=== PATIENT | male | born 1965 | race Caucasian/White ===

== ENCOUNTER 2021-01-13 10:03 | Outpatient (REF) | payer OTHER, SELFPAY ==
--- NOTE | ~2021-01-13 | XR_ITS ---
EXAMINATION: 1. Radiographs right elbow 2. Radiographs right wrist CLINICAL INFORMATION: Right elbow and wrist pain. COMPARISON: None TECHNIQUE: 3 views of the right elbow and 4 views of the right wrist were obtained. FINDINGS: Right elbow: Dislocated right elbow. There are adjacent osseous fragments most consistent with fractures of the radial head and olecranon process. The joint effusion is present. There is diffuse soft tissue swelling. Right wrist: Visualized portions of the distal radius and ulna demonstrate no fracture. Carpal rows are maintained. No carpal bone fracture. Visualized metacarpals demonstrate no fracture. No focal soft tissue swelling of the wrist. XR/XR elbow RT min 3V IMPRESSION: 1. Fracture/dislocation of the right elbow. 2. Unremarkable radiographs of the right wrist.
--- NOTE | ~2021-01-13 | XR_ITS ---
EXAMINATION: 1. Radiographs right elbow 2. Radiographs right wrist CLINICAL INFORMATION: Right elbow and wrist pain. COMPARISON: None TECHNIQUE: 3 views of the right elbow and 4 views of the right wrist were obtained. FINDINGS: Right elbow: Dislocated right elbow. There are adjacent osseous fragments most consistent with fractures of the radial head and olecranon process. The joint effusion is present. There is diffuse soft tissue swelling. Right wrist: Visualized portions of the distal radius and ulna demonstrate no fracture. Carpal rows are maintained. No carpal bone fracture. Visualized metacarpals demonstrate no fracture. No focal soft tissue swelling of the wrist. XR/XR wrist RT w scaphoid IMPRESSION: 1. Fracture/dislocation of the right elbow. 2. Unremarkable radiographs of the right wrist.
--- NOTE | ~2021-01-13 | CT_ITS ---
EXAMINATION: CT ELBOW WITHOUT CONTRAST, RIGHT CLINICAL INFORMATION: Unspecified fracture of lower end of unspecified extremity. Radiographs from earlier the same day demonstrate a fracture dislocation of the right elbow. COMPARISON: XR right elbow 01/13/2021. TECHNIQUE: Helical scanning was performed with submillimeter collimation in the axial plane with multiplanar 2-D reconstructions. This CT examination was performed using dose optimization techniques as appropriate, variously including the following: *Automated exposure control *Adjustment of mA and/or kV according to patient size (this includes techniques or standardized protocols for targeted exams where dose is matched to indication/reason for exam; i.e. extremities or head) *Use of iterative reconstruction technique DLP: 142 mGy-cm FINDINGS: The images are somewhat suboptimal, likely due to the need to scan the right elbow at the patient's side. There is a significant amount of quantum mottle artifact. There is a posterior dislocation of the radius and ulna relative to the distal humerus. The coronoid process of the humerus abuts the posterior aspect of the trochlea. The coronoid process is blunted and there is a small irregular fragment anterior and distal to the trochlea which is likely a displaced fracture of the coronoid process. The radial head is dorsal to the capitellum. There is a defect in the volar aspect of the radial head consistent with an intra-articular fracture. The radial head fragment appears to be displaced in a distal and ulnar direction and is situated volar to the proximal ulnar diametaphyseal junction. This fragment measures approximately 9 x 19 x 7 mm. There appears to be an additional tiny fracture fragment radial to the dislocated olecranon process, the donor site uncertain. CT/CT elbow RT wo con IMPRESSION: Complex fracture dislocation of the right elbow as described above.
== END 2021-01-13 10:04 | disposition home or self-care (01) ==
LOC: HO.HMGCX 10:03
PROVIDERS: Visit Provider Physician Assistant
DX: M25.531 Pain in right wrist (principal); M25.521 Pain in right elbow; S42.401A Unspecified fracture of lower end of right humerus, initial encounter for closed fracture
CPT/HCPCS: 73080; 73110; 73200

== ENCOUNTER 2021-01-15 12:13 | Day surgery (SDC) | payer OTHER, SELFPAY ==
[2021-01-15] VITALS (20 sets, daily range): BP systolic 153–191; BP diastolic 92–121; PULSE 100–128; RESP 15–18; TEMP 36.3–37.1; O2SAT 94–99; BMI 31.5; BMI 31.6
--- NOTE | ~2021-01-15 | FL_ITS ---
EXAMINATION: XR FLUOROSCOPY WITH IMAGES CLINICAL INFORMATION: History of fracture or dislocation right elbow. COMPARISON: Radiographs of the elbow from 01/13/2021. TECHNIQUE: Fluoroscopy performed by Dr. Pendleton. Fluoroscopy time: 0.3 minutes DAP: 0.0171 mGycm2 Images: 1 lateral fluoro image of the elbow is saved FL/FL guidance in OR FINDINGS AND IMPRESSION: Fluoroscopic imaging guidance required during reduction of elbow dislocation. Interval improved alignment compared to 01/13/2021. A bone fragment of the anterior elbow appears to correspond to the displaced coronoid process fragment. The radial head fragment is not well seen on this image.
--- NOTE | 2021-01-15 14:04 | P.CONAN_ITS ---
HPI Consult details Surgical Data: Procedures Operation Date: 01/15/21 13:50 Proposed Procedures p Elbow FX ORIF,closed vs open(Right) - James Pendleton MD Meds Allergy/AdvReac Type Severity Reaction Status Date / Time No Known Allergies Allergy Verified 01/13/21 09:40 Medication Instructions Recorded Confirmed Last Taken Type ibuprofen 200 mg tablet 400 mg PO Q8H PRN 01/13/21 01/13/21 Unknown History Diagnostics COVID Results: No Data to Display Electrocardiogram: No Data to Display Echocardiogram: No Data to Display [facility] Past Medical History Medical History: (Updated 01/15/21 @ 13:09 by Nicole Judd RN) HTN (hypertension) Surgical History Surgical History (Updated 01/15/21 @ 13:09 by Nicole Judd RN) History of surgery on arm Anesthesia History: Neg: Malignant Hyperthermia Social History Patient Tobacco Use Status: Never used Tobacco Use of substances other than those prescribed or required for medical reasons: No Exam Vital Signs: Last Vital Signs Temp 97.3 F 01/15/21 13:04 Pulse 120 H 01/15/21 13:04 Resp 18 01/15/21 13:04 BP 178/104 H 01/15/21 13:04 Pulse Ox 97 01/15/21 13:04 Airway Mallampati Class: III Mouth Opening: WNL Thyromental Distance: WNL Neck Mobility: WNL Dentition: No issues Other Heart: RRR Lungs: CTA Assessment & Plan Final Anesthetic Review NPO: Yes ASA Classification: ASA 2 Anesthetic Plan Anesthetic Plan: GA
--- NOTE | 2021-01-15 14:15 | MHC.SHP ---
Pre-Procedural Eval Section A Date of Service: 01/15/21 The patient is an INPATIENT: No Changes since office visit: Yes Patient answered all questions; No Cold of Flu in the past 2 weeks, No New Medical Problems and No Changes in Medication The History & Physical has been completed within 30 days and I have reviewed it.: Yes Section B Chief Complaint: fx of lower end humerus Allergies: Allergies Allergy/AdvReac Type Severity Reaction Status Date / Time No Known Allergies Allergy Verified 01/13/21 09:40 Plan I have reviewed the history and physical and performed a pertinent physical examination on my patient. No changes have occurred unless specified.
--- NOTE | 2021-01-15 14:27 | P.CONAN_ITS ---
[facility] Active Problems Active Problems: All Active Problems (Updated 01/15/21 @ 13:09 by Nicole dos santos RN) Fracture dislocation of elbow joint (Acute) Past Medical History Medical History (Updated 01/15/21 @ 13:09 by Nicole Judd RN) HTN (hypertension) Surgical History Surgical History (Updated 01/15/21 @ 13:09 by Nicole Judd RN) History of surgery on arm History of Problems with Anesthesia: No Social History Social History Patient Tobacco Use Status: Never used Tobacco Use of substances other than those prescribed or required for medical reasons: No Are you DNR?: No Advance Directives: No Advance Directives Information Provided: Yes Current occupational status: employed Current occupation: [employer] [place] employee Gender identity: Male Meds Allergies Allergy/AdvReac Type Severity Reaction Status Date / Time No Known Allergies Allergy Verified 01/13/21 09:40 Home Medications Medication Instructions Recorded Confirmed Last Taken Type ibuprofen 200 mg tablet 400 mg PO Q8H PRN 01/13/21 01/13/21 Unknown History Exam Exam Date and Time: January 15, 2021 1427 Height,Weight and Vital Signs: Height 5 ft 10 in Weight 99.79 kg Last Vital Signs Temp 97.3 F 01/15/21 13:04 Pulse 120 H 01/15/21 13:04 Resp 18 01/15/21 13:04 BP 178/104 H 01/15/21 13:04 Pulse Ox 97 01/15/21 13:04 Airway Mallampati Class: II TM Dist: >3cm Neck ROM: Full Loose/Missing/Broken Teeth: No Heart: RRR Lungs: CTA Assessment and Plan Assessment Anesthesia Assessment: Anesthesia Plan Discussed and Chart Reviewed Final Anesthetic Review History of Problems with Anesthesia: No NPO: Yes ASA Class: II Final Preanesthetic Review: Meds/Allgs Chart Reviewed, Consent Obtained/Reviewed and Anes Risks/Benef Reviewed Patient Risk: Low Procedure Risk: Low Anesthetic Plan Anesthetic Plan: GA Disposition: Standard PACU
[2021-01-15] MEDS: oxyCODONE HCl Immed Release 5 MG TABLET 10 MG PO (16:11)
[2021-01-15] MEDS: Acetaminophen 325 MG TABLET 975 MG PO (16:14)
[2021-01-15] MEDS: HYDROmorphone HCl 0.5 MG/0.5 ML SYRINGE IVPUSH (16:43)
[2021-01-15] MEDS: hydrALAZINE HCl 20 MG/ML VIAL 10 MG IVPUSH (17:47)
--- NOTE | 2021-01-15 18:12 | PC.NURSE ---
dr. godfrey calling hospitalist to do m.d. to m.d. report.
--- NOTE | 2021-01-15 18:35 | PM.IMHP ---
History of Present Illness Date of Service: 01/15/21 Chief Complaint: Uncontrolled HTN 56 year male with who recently fell and injured right arm and only went to an urgent care 3 days ago and noted to have right lower end humerus fracture and was operated on today. At the urgent care visit he was noted to have high BP and was prescribed Norvasc 5 mg which he has been taking daily, including today. Prior to surgery today he was noted to have very high BP and was given med intra and post operatively. And following surgery BP was still high at one point 191/120 and given meds including Hydralazine and Labetalol, most recent BP is now 157/112. No headache, no sob or chest pain. Pain is reasonably well controlled. Review of Systems Review of Systems: Gen: no fever Resp: no sob, no cough CV: no chest, no BRADSHAW, no leg edema GI: No n/v, no abd pain Neuro: No confusion Yes all other systems are reviewed and are negative [facility] Medical History (Updated 01/15/21 @ 18:46 by Ceferino Urena MD) HTN (hypertension) Surgical History History of surgery on arm Social History Patient Tobacco Use Status: Never used Tobacco Use of substances other than those prescribed or required for medical reasons: No Are you DNR?: No Advance Directives: No Advance Directives Information Provided: Yes Current occupational status: employed Current occupation: [employer] [place] Gender identity: Male Meds Allergies Allergy/AdvReac Type Severity Reaction Status Date / Time No Known Allergies Allergy Verified 01/13/21 09:40 Active Medications: Current Medications Acetaminophen (Acetaminophen 325 Mg Tablet) 1,000 mg PO ONCE PRN PRN Reason: Pain, Mild (Pain Scale 1-3) Acetaminophen (Acetaminophen 325 Mg Tablet) 650 mg PO Q6H PRN PRN Reason: Pain, Mild (Pain Scale 1-3) Albuterol Sulfate (Albuterol Sulfate (0.083%) 2.5 Mg/3 Ml Vial.Neb) 2.5 mg INHALE ONCE PRN PRN Reason: Wheezing Fentanyl (Fentanyl Citrate/Pf 100 Mcg/2 Ml Vial) 50 mcg IVPUSH Q5M PRN; Protocol PRN Reason: Pain, Severe (Pain Scale 7-10) Fentanyl (Fentanyl Citrate/Pf 100 Mcg/2 Ml Vial) 25 mcg IVPUSH Q5M PRN; Protocol PRN Reason: Pain, Moderate (Pain Scale 4-6 Hydromorphone HCl (Hydromorphone Hcl 0.5 Mg/0.5 Ml Syringe) 0.5 mg IVPUSH Q5M PRN; Protocol PRN Reason: Pain, Severe (Pain Scale 7-10) Last Admin: 01/15/21 16:43 Dose: 0.5 mg Documented by: Hydromorphone HCl (Hydromorphone Hcl 0.5 Mg/0.5 Ml Syringe) 0.25 mg IVPUSH Q5M PRN; Protocol PRN Reason: Pain, Severe (Pain Scale 7-10) Melatonin (Melatonin 3 Mg Tablet) 6 mg PO BEDTIME PRN PRN Reason: Insomnia Ondansetron HCl (Ondansetron Hcl 4 Mg/2 Ml Vial) 4 mg IVPUSH ONCE PRN PRN Reason: Nausea and Vomiting Oxycodone HCl (Oxycodone Hcl Immed Release 5 Mg Tablet) 5 mg PO ONCE PRN PRN Reason: Pain, Severe (Pain Scale 7-10) Oxycodone HCl (Oxycodone Hcl Immed Release 5 Mg Tablet) 5 mg PO Q6H PRN PRN Reason: Pain, Moderate (Pain Scale 4-6 Sodium Chloride (0.9 % Sodium Chloride Flush 3 Ml Syringe) [facility] Medications Medication Instructions Recorded Confirmed Last Taken Type ibuprofen 200 mg tablet 400 mg PO Q8H PRN 01/13/21 01/13/21 Unknown History Physical Exam Vital Signs and Narrative: Vital Signs: Last Vital Signs Temp 97.7 F 01/15/21 15:33 Pulse 104 H 01/15/21 18:13 Resp 18 01/15/21 18:13 BP 157/112 H 01/15/21 18:13 Pulse Ox 95 01/15/21 18:13 Body Mass Index 31.5 Const: Other: Constitutional: Alert, in no distress, overweight. Mental Status: Oriented to person, place and time. Eyes: Pupils are equal, round and reactive to light. Ear, Nose and Throat: Oropharynx clear, mucous membranes moist. Ears and nose without eformities. . Respiratory: Clear to auscultation. No wheezing, rales or rhonchi. Cardiovascular: S1 S2 regular. No murmurs, rubs or gallops. Gastrointestinal: Abdomen soft, non-tender, non-distended. Normal bowel sounds.? Neurologic: Cranial nerves II-XII grossly intact. No focal neurological deficits. Moves all extremities spontaneously.? Skin: No rashes or lesions.?has right arm splint Musculoskeletal: No cyanosis or clubbing. Psychiatric: Normal mood and affect? Results Imaging Radiologist's Impressions: Impressions Guidance Fluoroscopy 01/15/21 13:57 FINDINGS AND IMPRESSION: Fluoroscopic imaging guidance required during reduction of elbow dislocation. Interval improved alignment compared to 01/13/2021. A bone fragment of the anterior elbow appears to correspond to the displaced coronoid process fragment. The radial head fragment is not well seen on this image. Assessment and Plan (1) HTN (hypertension): Status: Acute (2) Fracture dislocation of elbow joint: Status: Acute 56 year male recently diagnosed HTN and s/p righg humrus fracture repair and post uncontrolled HTN plan: Monitor overnight, continue home dose of Norvasc 5, add diuretics, avoid dropping BP too much too quickly, IV hydralazine or labetalol for extremely high BP ie SBP >180 or DBP> 110 pain management with oxycodone and post op management by surgery. If remains in hospital beyond tomorrow then consider chemical DVT prophylaxis Quality Stroke Does the patient have a stroke diagnosis?: No VTE Prior VTE?: No VTE Risk Level:: Medical - moderate - high VTE Device Contraindication: Treatment Not Indicated VTE Drug Contraindication: Treatment Not Indicated
--- NOTE | 2021-01-15 20:16 | PM.EVENT ---
Event Note Date of Service: 01/15/21 Event Note: Patient is s/p Right elbow Open reduction while in PACU his BP remained uncontrolled; therefore, admission was requested. Hospitalist was consulted for management on uncontrolled HTN Right elbow : Keep splint clean, dry, and intact Elevate throughout the day No heavy lifting Perform fist/finger exercises throughout the day Discharge pending medical clearance.
[2021-01-15] MEDS: 0.9 % Sodium Chloride Flush 3 ML SYRINGE IVFLUSH (20:28)
[2021-01-15] MEDS: oxyCODONE HCl Immed Release 5 MG TABLET PO (20:28)
[2021-01-16 04:00] VITALS: BP 156/72; PULSE 102; RESP 22; TEMP 36.4; O2SAT 98
--- NOTE | 2021-01-16 07:42 | HO.POSTANES ---
Post Anesthesia Evaluation Post Anesthesia Evaluation Vital Signs: Vital Signs Temp Pulse Resp BP Pulse Ox 01/16/21 04:00 97.5 F 102 H 22 H 156/72 H 98 01/15/21 23:36 98.8 F 116 H 15 178/100 H 94 Anesthesia: General LMA Mental Status: Awake Pain Control: Satisfactory Nausea/Vomiting: None Hydration: Adequate Anesthesia-Related Issues: No Anes. Related Issues
--- NOTE | 2021-01-16 08:47 | PC.NURSE ---
Patient refused to have AM labs drawn and refused to have AM vital signs done. Dr. Urena made aware. Patient verbalized wanting to leave. Dr. Urena stated it was fine for patient to leave AMA. PAtient was educated on risks of leaving AMA and patient verbalized understanding. IV was removed. AMA paperwork was signed.
--- NOTE | 2021-01-16 08:53 | PM.PNORT ---
Subjective Subjective Date of Service: 01/16/21 Interval history: POD1 s/p right elbow open reduction. Patient is resting comfortably in bed. Medicine managing BP. Denies any SOB, CP, palpitations, dissniness. Physical Exam Vital Signs: Vital Signs: Last Vital Signs Temp 97.5 F 01/16/21 04:00 Pulse 102 H 01/16/21 04:00 Resp 22 H 01/16/21 04:00 BP 156/72 H 01/16/21 04:00 Pulse Ox 98 01/16/21 04:00 Body Mass Index 31.6 Const: General: cooperative, healthy appearing and no acute distress Resp: Effort & Inspection: normal respiratory effort and able to speak in complete sentences Cardio: Rate: regular rate Peripheral pulses: Peripheral pulses 2+ throughout GI: Palpation (GI): Soft to palpation Skin: Lesions: no lesions Rashes: no rashes Extrem: Other: Right elbow splint is clean, dry, and intact. Patient is able to move all digits. Sensation intact. Procedures Date of Service Date of Service: 01/16/21 Progress Note: A&P Assessment and plan (1) Fracture dislocation of elbow joint: Status: Acute Assessment and Plan: Continue pain mgmnt'Keep splint clean, dry and intact Sling at all times. Dispo planning-Pending- Medicine to manage BP Fall Risk Details Current Medications: Current Medications Acetaminophen (Acetaminophen 325 Mg Tablet) 1,000 mg PO ONCE PRN PRN Reason: Pain, Mild (Pain Scale 1-3) Acetaminophen (Acetaminophen 325 Mg Tablet) 650 mg PO Q6H PRN PRN Reason: Pain, Mild (Pain Scale 1-3) Albuterol Sulfate (Albuterol Sulfate (0.083%) 2.5 Mg/3 Ml Vial.Neb) 2.5 mg INHALE ONCE PRN PRN Reason: Wheezing Fentanyl (Fentanyl Citrate/Pf 100 Mcg/2 Ml Vial) 50 mcg IVPUSH Q5M PRN; Protocol PRN Reason: Pain, Severe (Pain Scale 7-10) Fentanyl (Fentanyl Citrate/Pf 100 Mcg/2 Ml Vial) 25 mcg IVPUSH Q5M PRN; Protocol PRN Reason: Pain, Moderate (Pain Scale 4-6 Hydrochlorothiazide (Hydrochlorothiazide 12.5 Mg Tablet) 12.5 mg PO DAILY [facility]; Protocol Last Admin: 01/16/21 08:47 Dose: Not Given Documented by: Hydromorphone HCl (Hydromorphone Hcl 0.5 Mg/0.5 Ml Syringe) 0.5 mg IVPUSH Q5M PRN; Protocol PRN Reason: Pain, Severe (Pain Scale 7-10) Last Admin: 01/15/21 16:43 Dose: 0.5 mg Documented by: Hydromorphone HCl (Hydromorphone Hcl 0.5 Mg/0.5 Ml Syringe) 0.25 mg IVPUSH Q5M PRN; Protocol PRN Reason: Pain, Severe (Pain Scale 7-10) Melatonin (Melatonin 3 Mg Tablet) 6 mg PO BEDTIME PRN PRN Reason: Insomnia Ondansetron HCl (Ondansetron Hcl 4 Mg/2 Ml Vial) 4 mg IVPUSH ONCE PRN PRN Reason: Nausea and Vomiting Oxycodone HCl (Oxycodone Hcl Immed Release 5 Mg Tablet) 5 mg PO ONCE PRN PRN Reason: Pain, Severe (Pain Scale 7-10) Oxycodone HCl (Oxycodone Hcl Immed Release 5 Mg Tablet) 5 mg PO Q6H PRN PRN Reason: Pain, Moderate (Pain Scale 4-6 Last Admin: 01/15/21 20:28 Dose: 5 mg Documented by: Sodium Chloride (0.9 % Sodium Chloride Flush 3 Ml Syringe) 3 [facility] Last Admin: 01/16/21 08:47 Dose: Not Given Documented by: Time Spent With Patient Time: Total time spent is greater than 50% in coordination of care (as documented) at patient's floor/unit and/or counseling patient: Time with patient: less than 15 minutes Quality Stroke Does the patient have a stroke diagnosis?: No VTE Prior VTE?: No VTE Risk Level:: Medical - moderate - high VTE Device Contraindication: Treatment Not Indicated VTE Drug Contraindication: Treatment Not Indicated
--- NOTE | 2021-01-16 09:09 | MHC.CM.PN ---
Addendum entered by Bernie Ayoub 01/16/21 09:18: PATIENT IS LEAVING AMA HE PLANS TO SECURE [facility] [place] [facility] [place] [facility]ALTHCARE PROVIDER. Original Note: PATIENT LIVES WITH HIS SPOUSE. HE IS INDEPENDENT WITH ALL ADLS. NO DME OR VNA SERVICES IN THE HOME. HE IS AWARE THAT HE IS DISCHARGED HOME TODAY - SELF CARE. SPOUSE IS PROVIDING TRANSPORT. RN AWARE OF PLAN. M.O.O.N. 01/16 IN CHART
--- NOTE | 2021-01-16 09:28 | P.DS_ITS ---
DS: Providers Provider Date of Service: 01/16/21 Date of admission: 01/15/21 18:16 Primary care physician: None Physician Consults: 01/15/21 17:20 Consult to Medicine Stat Consulting Provider: Hospitalist Reason for consultation: Incontrolled htn Has provider been notified: No DS: Diagnosis Discharge Diagnosis (1) Fracture dislocation of elbow joint: Status: Acute DS: Summary Hospital Course Hospital Course: Patient was monitored overnight blood pressure improved, last check 157/72 at 4 am. He refused further BP check, he refused labs to assess BMP, he refused additional med and attribute everything to his anxiety and prefer defering everything to his pcp, he understands that risks include [place], stroke and even if BP is not adequately, he was of sound mind and assumed full responsibility, RN present during conversation. Time Spent with Patient Time attestation: Total time spent providing and/or coordinating discharge services: Discharge coordination time: Greater than 30 minutes Quality: Stroke Does the patient have a stroke diagnosis?: No Physical Exam Vital Signs: Vital Signs: Last Vital Signs Temp 97.5 F 01/16/21 04:00 Pulse 102 H 01/16/21 04:00 Resp 22 H 01/16/21 04:00 BP 156/72 H 01/16/21 04:00 Pulse Ox 98 01/16/21 04:00 Body Mass Index 31.6 General: AO X 3, no acute distress Resp: CTA bilateral CVS: S1,S2,RRR GI: +BS, NT, no distention Skin: No rash MSK: right arm splint Neuro: motor grossly intact Psych: appropriate affect Discharge Plan Discharge Anticipated Discharge Date/Time: 01/16/21 09:23 Patient Disposition: Left Against Medical Advice Referrals: Physician,None [Primary Care Provider] - 1 Week Discharge Medications: New oxycodone-acetaminophen [Percocet] 5-325 mg tablet 1 tab PO Q6H PRN (Reason: pain (scale score 4-6)) Qty: 28 RF: 0 Continued ibuprofen 200 mg tablet 400 mg PO Q8H PRN (Reason: pain) RF: 0 amlodipine 5 mg tablet 5 mg PO DAILY Qty: 30 RF: 0 Discharge Orders: Discharge Order (Routine); Ordered 01/15/21 Ordered By: Madison Kam Diet: regular diet Activity on Discharge: Use cane or walker Stand Alone Forms: Patient Portal Discharge page Activity Restrictions/Additional Instructions: Keep splint clean, dry, and intact Elevate throughout the day No heavy lifting Perform fist/finger exercises throughout the day Do not bathe or shower--keep splint dry Take Percocet 5/325mg tabs 1 tab by mouth every 6 hours as needed Call [facility] orthopedics with any questions or concerns you will be contacted by Orthopedics to book your upcoming surgery for next week Care Plan Goals: Blood pressure control Health Concerns: uncontrolled Plan of Treatment: continue taking your blood pressure medication, geet a blood pressure machine and check at home or check at local pharmacy or grocery store, go see your Doctor within a week and have medication adjusted. You understand that you decline to have lab check, blood pressure check this morning for medication adjustment and is responsible for healh issues ralted to your high blood press ure included but not limitted to high heart attack, stroke, and even Assessment: as above
--- NOTE | 2021-01-21 11:45 | PM.OP ---
Brief Operative Note Date of Service: 01/15/21 Pre-op diagnosis: fracture dislocation right elbow Post-op diagnosis: same Procedure: open reduction, removal of loose bodies with lateral ulnar collateral ligament repair Surgeon: James Pendleton MD Anesthesia: GETA Was an Director Of Retail Merchandising used for this Procedure?: Yes Director Of Retail Merchandising: Madison Kam Estimated blood loss (mL): 100 Tourniquet time (min): 45 Pathology: none sent Condition: stable Disposition: PACU
--- NOTE | 2021-01-21 11:52 | W.PM.OPN ---
Operative Note Operative Note Date of Service: 01/15/21 Narrative: Pre-op diagnosis: fracture dislocation right elbow Post-op diagnosis: same Procedure: open reduction, removal of loose bodies with lateral ulnar collateral ligament repair Surgeon: James Pendleton MD Anesthesia: RAFATA Was an Stained Glass Glazier Helper used for this Procedure?: Yes Stained Glass Glazier Helper: Madison Kam Estimated blood loss (mL): 100 Tourniquet time (min): 45 Pathology: none sent Condition: stable Disposition: PACU Indications: This is a 56-year-old gentleman who sustained a traumatic right elbow fracture dislocation and failed to present to the emergency department for 2 weeks. When he did we obtained a CT scan consented him to go to [facility] for closed versus open reduction. Procedure in detail: Patient brought the upper and placed supine with a hand table and prepped and draped in standard sterile fashion. Time-out was called to identify proper site, proper procedure and proper surgeon and IV antibiotics per weight were administered. I began by trying to close reduce this fracture. This was clearly am not going to be possible. Therefore a standard [place] incision was made over the posterolateral elbow. Dissection was taken down through the anconeus and the the radiocapitellar joint capsule. The lateral ulnar collateral ligamentous complex had avulsed off the humerus and the elbow was posteriorly dislocated. I was able to irrigate and remove necrotic debris and several large bony pieces of the radial head consisting of approximately 50% of the radial head. I was able to maintain the elbow in a reduced position and flexion and pronation but extension supination it easily dislocated. There was a type 1 coronoid fracture and no other bony abnormalities appreciated in the joint. Once I had irrigated copiously removed all excess bony debris I flexed and pronated the elbow and then used 1 4.75 Paz and Nephew Helacoil suture anchor in the lateral distal humerus and used this to repair the lateral ulnar collateral ligamentous complex. Once this was complete I was able to flex the elbow to approximately 70 degrees but the radial head deficiency was contributing to persistent instability. Therefore I splinted in approximately 120 degrees of flexion and pronation after I had it irrigated copiously and closed the remaining incision with absorbable sutures and boone. Patient was placed in sterile dressing prior to splinting. Once he was splinted he was extubated and brought to recovery room in a stable condition there were no known complications
== END 2021-01-17 10:45 | disposition home or self-care (01) ==
LOC: HO.SSS 15:26 → HO.S3 17:52 → HO.SSS 18:31 → HO.S3 01-16 09:19
PROVIDERS: Visit Provider Orthopaedic Surgery
PROC: (CPT 24586; principal; 2021-01-15 13:50)
DX: S42.401A Unspecified fracture of lower end of right humerus, initial encounter for closed fracture (principal); I10 Essential (primary) hypertension; W18.30XA Fall on same level, unspecified, initial encounter; Y93.9 Activity, unspecified; Y92.9 Unspecified place or not applicable; Y99.8 Other external cause status; Z87.891 Personal history of nicotine dependence
CPT/HCPCS: 24586; C1713; J0690; J1100; J1170; J2250; J2405; J3010

== ENCOUNTER 2021-01-21 09:53 | Day surgery (SDC) | payer OTHER, SELFPAY ==
--- NOTE | 2021-01-20 09:58 | HO.ANESPROP2 ---
Documented by User: Jolie Isaac NP 01/20/21 10:05 HPI - Anesthesia Eval Consult details Narrative: 56yo M for Right Elbow Arthroplasty,radial head with ligament reconstruction s/p Right Elbow ORIF with GA-LMA Pt with newly dx'd htn, was uncontrolled periop (BP 178/104, HR 120). Was admitted postop of for BP management. Continues to take Amlodipine 5mg daily. [facility] Active Problems Active Problems: All Active Problems (Updated 01/15/21 @ 18:46 by Ceferino Urena MD) HTN (hypertension) (Acute) Fracture dislocation of elbow joint (Acute) Past Medical History Medical History HTN (hypertension) Surgical History Surgical History History of surgery on arm History of Problems with Anesthesia: No Social History Social History Household Members: Spouse and Family Housing: House Do you presently have visiting nurse or other home services: No Patient Tobacco Use Status: Never used Tobacco Use of substances other than those prescribed or required for medical reasons: No Are you DNR?: No Advance Directives: No Advance Directives Information Provided: Yes service: No Current occupational status: employed Current occupation: [employer] [place] employee Gender identity: Male Meds Allergies Allergy/AdvReac Type Severity Reaction Status Date / Time No Known Allergies Allergy Verified 01/21/21 09:57 Active Medications: Current Medications Cefazolin Sodium/Dextrose (Ancef) 2 gm in 50 mls @ 100 mls/hr IV PREOP ONE Stop: 01/21/21 07:29 Home Medications Medication Instructions Recorded Confirmed Last Taken Type ibuprofen 200 mg tablet 400 mg PO Q8H PRN 01/13/21 01/13/21 Unknown History Exam Exam Date and Time: January 20, 2021 0958 Assessment and Plan Assessment Anesthesia Assessment: Chart Reviewed Final Anesthetic Review History of Problems with Anesthesia: No Documented by User: Julien Barrow MD 01/21/21 12:44 PMF Past Medical History Medical History HTN (hypertension) Family History Family history of problems with anesthesia: No Surgical History Surgical History History of surgery on arm History of Problems with Anesthesia: No Social History Social History Household Members: Spouse and Family Housing: House Do you presently have visiting nurse or other home services: No Patient Tobacco Use Status: Never used Tobacco Use of substances other than those prescribed or required for medical reasons: No Are you DNR?: No Advance Directives: No Advance Directives Information Provided: Yes service: No Current occupational status: employed Current occupation: [employer] [place] employee Gender identity: Male Meds Allergies Allergy/AdvReac Type Severity Reaction Status Date / Time No Known Allergies Allergy Verified 01/21/21 09:57 Home Medications Medication Instructions Recorded Confirmed Last Taken Type ibuprofen 200 mg tablet 400 mg PO Q8H PRN 01/13/21 01/13/21 Unknown History Exam Airway Mallampati Class: III TM Dist: >3cm Neck ROM: Full Loose/Missing/Broken Teeth: No Heart: Sinus tachycardia Assessment and Plan Assessment Anesthesia Assessment: Anesthesia Plan Discussed Final Anesthetic Review Family History of Problems with Anesthesia: No History of Problems with Anesthesia: No NPO: Yes ASA Class: II Final Preanesthetic Review: No Changes in Pt Med Stat, Meds/Allgs Chart Reviewed, Consent Obtained/Reviewed and Anes Risks/Benef Reviewed Patient Risk: Intermediate Procedure Risk: Low Anesthetic Plan Anesthetic Plan: GA Disposition: Standard PACU
[2021-01-21] VITALS (8 sets, daily range): BP systolic 151–175; BP diastolic 93–105; PULSE 135–140; RESP 12–20; TEMP 36.7–36.8; O2SAT 95–97; BMI 31.5
--- NOTE | ~2021-01-21 | FL_ITS ---
EXAMINATION: XR FLUOROSCOPY WITH IMAGES CLINICAL INFORMATION: Right elbow arthroplasty, radial head COMPARISON: Fluoroscopic spot view right elbow 01/15/2021 TECHNIQUE: Fluoroscopy performed by Dr. James Pendleton. Fluoroscopy time: 1.5 minutes DAP: 0.0561 Gycm2 Images: 1 FINDINGS: Lateral view elbow demonstrates radial head prosthesis in position. Hardware intact. No fracture or dislocation. No destructive process. FL/FL guidance in OR IMPRESSION: Status post radial head prosthesis. Hardware intact.
[2021-01-21] MEDS: Lactated Ringers 1,000 ML 100 ML IVCONT (10:52)
--- NOTE | 2021-01-21 11:31 | MHC.SHP ---
Pre-Procedural Eval Section A Date of Service: 01/21/21 Section B Chief Complaint: fx of lower end humerus Details of Present Illness: Unstable right elbow with radial head fracture and LUCL avulsion Relevant Family History (Specify if Yes): No Relevant Social History: None Present Medications: see Short Stay Collaborative assessment Medical History: No relevant PMH History of Previous Operations: Relevant previous surgery/procedure and date(s) Allergies: Allergies Allergy/AdvReac Type Severity Reaction Status Date / Time No Known Allergies Allergy Verified 01/21/21 09:57 Review of Systems Sugical H&P ROS: Negative: Constitution, Cardiovascular, Respiratory, Neurological, Psychiatric, Hem-Onc, Allergic/Immunologic, Gastrointestinal, Genitourinary, Integumentary, Endocrine and Eyes/Ears/Nose/Throat and Yes, Specify: Musculoskeletal (Unstable right elbow with spint in place) Exam Surgical H&P Exam: Normal: HEENT, Normal: Heart, Normal: Lungs, Normal: Abdomen, Normal: Skin and Normal: Neurological and Significant Findings: Extremities (splint in place. SILT and moving fingers comfortably) Plan Diagnosis/Plan: Change (Right elbow radial head arthroplasty and lateral ligament complex repair) I have reviewed the history and physical and performed a pertinent physical examination on my patient. No changes have occurred unless specified.
--- NOTE | 2021-01-21 15:23 | P.BOP_ITS ---
Brief Operative Note Date of Service: 01/21/21 Pre-op diagnosis: right elbow fracture dislocation Post-op diagnosis: same Procedure: Right radial head arthroplasty and lateral ulnar collateral ligament repair Implants: VerticalResponse radial head 9.5 stem and 24x10 Paz and nephew Helacoil 4.75 suture anchor and 2.5 micro raptor Surgeon: James Pendleton MD Anesthesia: GETA and local Was an Orthophotography Technician used for this Procedure?: Yes Orthophotography Technician: Les Rogers Estimated blood loss (mL): 50 Tourniquet time (min): 120 IV fluids (mL): 1,500 Pathology: other Condition: stable Disposition: PACU
[2021-01-21] MEDS: Ketorolac Tromethamine 15 MG/ML VIAL IVPUSH (15:58)
[2021-01-21] MEDS: oxyCODONE HCl Immed Release 5 MG TABLET PO (15:58)
--- NOTE | 2021-01-29 12:42 | W.PM.OPN ---
Operative Note Operative Note Date of Service: 01/21/21 Narrative: Pre-op diagnosis: right elbow fracture dislocation Post-op diagnosis: same Procedure: Right radial head arthroplasty and lateral ulnar collateral ligament repair Implants: Bright medical radial head 9.5 stem and 24x10 Paz and nephew Helacoil 4.75 suture anchor and 2.5 micro raptor Surgeon: James Pendleton MD Anesthesia: GETA and local Was an Molder Trimmer used for this Procedure?: Yes Molder Trimmer: Les Rogers Estimated blood loss (mL): 50 Tourniquet time (min): 120 IV fluids (mL): 1,500 Pathology: other Condition: stable Disposition: PACU Procedure in detail: Raudel was brought to the operating room and placed supine on the operative table. He was prepped and draped in standard sterile fashion and a time-out was called to identify proper site, proper procedure, proper surgeon and IV antibiotics per weight were administered. I began by opening up the prior posterolateral incision. The capsule and the provisional posterolateral repair were again opened up and the joint examined. There was 50% of the radial head missing with an unstable elbow. I agree aggressively probed and explored the elbow joint and found an additional bony piece lodged anteromedially. This was removed after careful dissection from the anterior capsule. This measured approximately 3 x 5 mm. I copiously irrigated out the joint. Again there was a type 1 coronoid fracture. I turned my attention back to the radial head. A neck cut was made approximately 10 mm distal to the tip of radial head. I then cleaned up the neck and reamed to a size 9 Reamer. I then trialed with a 24 x 10 radial head and was satisfied with the stability and fit both under direct visualization and with radiographic examination. The elbow remained unstable however with the posterolateral capsule and ligaments avulsed off the lateral humerus. once I was satisfied with the radial head trail my final radial implant was placed. I then turned my attention to the posterolateral ligamentous repair. Thge posterolateral complex including the lateral ulnar collateral and lateral radial collateral ligament as well as the accessory lateral ligament were grasped along with the capsule and repaired en marko to the lateral humerus. A point of rotation just proximal and posterior to the center of rotation of the lateral humerus was identified and a 4.75 double loaded helical oil was placed here. The suture tape and suture was then used to reapproximate the normal anatomy of the L UCL and RCL and capsule. Once this was stable I placed an additional suture anchor proximal to this and grasped the bulk of posterolateral ligamentous complex and placed a matress stich and reinforced the repair. This 2nd suture anchor forming a type of internal brace. Once this was done I took the elbow through range of motion and was happy with the stability. He was stable in extension and supination. I then irrigated copiously and closed with absorbable suture and boone. I then placed him into a well-padded posterior splint with the sugar-tong component in approximately 90 degrees of flexion and with varus mold and with the wrist in neutral. Patient was then extubated brought to recovery room stable condition there were no known complications. Intraoperative radiographs showed a reduced elbow.
== END 2021-01-21 16:47 | disposition home or self-care (01) ==
PROVIDERS: Visit Provider Orthopaedic Surgery
PROC: (CPT 24363; principal; 2021-01-21 11:20)
DX: S42.491A Other displaced fracture of lower end of right humerus, initial encounter for closed fracture (principal); S53.22XA Traumatic rupture of left radial collateral ligament, initial encounter; S53.32XA Traumatic rupture of left ulnar collateral ligament, initial encounter; W18.30XA Fall on same level, unspecified, initial encounter; Y93.9 Activity, unspecified; Y92.9 Unspecified place or not applicable; Y99.8 Other external cause status; I10 Essential (primary) hypertension
CPT/HCPCS: 24666; 24343; 88304; 88311; C1713; C1776; J0690; J1100; J1170; J1885; J2250; J2405; J3010

== ENCOUNTER 2021-02-03 08:00 | Outpatient (REF) | payer OTHER, SELFPAY ==
--- NOTE | ~2021-02-03 | XR_ITS ---
EXAMINATION: XR ELBOW, RIGHT CLINICAL INFORMATION: Post radial head prosthesis COMPARISON: Previous x-ray most recent 01/21/2021 TECHNIQUE: AP, lateral, and oblique views of the right elbow. FINDINGS: There is a radial head prosthesis that appears unchanged. No fracture or dislocation. Joint effusion. Diffuse soft tissue swelling and skin boone. Posterior cast or splint. XR/XR elbow RT min 3V IMPRESSION: Stable appearance of right radial head prosthesis.
== END 2021-02-03 08:01 | disposition home or self-care (01) ==
LOC: HO.HOSX 08:00
PROVIDERS: Visit Provider Physician Assistant
DX: Z47.1 Aftercare following joint replacement surgery (principal); Z96.621 Presence of right artificial elbow joint
CPT/HCPCS: 73080

== ENCOUNTER → 2021-02-10 14:57 | Outpatient (BNVA) | payer OTHER, SELFPAY | PROVIDERS: PCP Hospitalist; Visit Provider Orthopaedic Surgery ==

== ENCOUNTER 2021-02-17 14:24 | Outpatient (REF) | payer OTHER, SELFPAY ==
--- NOTE | ~2021-02-17 | XR_ITS ---
EXAMINATION: XR ELBOW, RIGHT CLINICAL INFORMATION: Elbow pain; follow-up elbow surgery following fractured/dislocation COMPARISON: 02/03/2021 and previous TECHNIQUE: AP, lateral, and oblique views of the right elbow. FINDINGS: There has been resection of the head of the radius and placement of a prosthetic component which projects in alignment with the coronoid process of the humerus. The trochlear joint is widened, and there is evidence of an elbow joint effusion. There are ossicles projected anterior to the joint space which may be intra-articular. There is ossification projected dorsal to the distal shaft of the radius and curvilinear ossification projected posterior to the distal humerus. An acute fracture is not appreciated. There is diffuse soft tissue swelling extending into the proximal forearm. XR/XR elbow RT 2V IMPRESSION: Status post open reduction of elbow dislocation with placement of radial head prosthesis. There is widening of the trochlear joint without dislocation. There is evidence of a large joint effusion and intra-articular or periarticular ossification.
== END 2021-02-17 14:25 | disposition home or self-care (01) ==
LOC: HO.HOSX 14:24
PROVIDERS: PCP Hospitalist; Visit Provider Orthopaedic Surgery
DX: S53.441D Ulnar collateral ligament sprain of right elbow, subsequent encounter (principal); S53.00 Unspecified subluxation and dislocation of radial head
CPT/HCPCS: 73070

== ENCOUNTER → 2021-02-24 10:21 | Outpatient (BNVA) | payer OTHER, SELFPAY | PROVIDERS: PCP Hospitalist; Visit Provider Orthopaedic Surgery ==

== ENCOUNTER 2021-03-02 16:50 | Outpatient (REF) | payer OTHER, SELFPAY | END 2021-03-02 16:51 | disposition home or self-care (01) | LOC: HO.HOSX 16:50 | PROVIDERS: Visit Provider Orthopaedic Surgery | DX: Z13.89 Encounter for screening for other disorder (principal) ==

== ENCOUNTER 2021-03-13 08:33 | Outpatient (REF) | payer OTHER, SELFPAY ==
--- NOTE | ~2021-03-13 | XR_ITS ---
EXAMINATION: XR ELBOW, RIGHT CLINICAL INFORMATION: Left elbow pain. COMPARISON: 02/17/2021 TECHNIQUE: Single view of the right elbow. FINDINGS: Radial head replacement for traumatic fracture dislocation of the elbow. Osseous healing changes noted along the posterior aspect of the distal humerus. Again seen are ossific densities anteriorly which may be intra-articular. There is progressive ossification along the posterior aspect of the distal humerus. XR/XR elbow RT 2V IMPRESSION: Right radial head replacement. Progressive ossification along the posterior aspect of the distal humerus.
== END 2021-03-13 08:34 | disposition home or self-care (01) ==
LOC: HO.HOSX 08:33
PROVIDERS: PCP Hospitalist; Visit Provider Orthopaedic Surgery
DX: S53.441D Ulnar collateral ligament sprain of right elbow, subsequent encounter (principal); Z96.621 Presence of right artificial elbow joint
CPT/HCPCS: 73070

== ENCOUNTER → 2021-04-07 10:09 | Outpatient (BNVA) | payer OTHER, SELFPAY | PROVIDERS: PCP Hospitalist; Visit Provider Orthopaedic Surgery ==

== ENCOUNTER 2021-05-16 09:30 | Outpatient (RCR) | payer OTHER, SELFPAY ==
--- NOTE | 2021-02-07 11:18 | MHC.OT.OD ---
[address] [phone] F: [phone] Occupational Therapy Daily Note Start Time: 1400 End Time: 1500 Visit Duration: 60 Billable Time: 60 Date of Evaluation: 02/06/21 Treatments to Date: 1 Cancellations to Date: No Shows to Date: Authorized Treatment: Insurance End Date: Subjective: I didn't know I can write or do anything Pain Score: 3 Pain Location: R elbow Objective: OT eval completed . See eval for details Pt hinge brace adjusted for comfort Pt ed and practice with shoudler isometrics , wrist and hand AROM. Stress ball inside sales lead and pinch Reviewed precautions Tests and Measures: Assessment: See eval for details Short Term Goals: Demo HEP as instructed Indep with upper body dressing with modifications as needed Demo full shoulder ROM with avoiding abduction and forearm rotationDemo HEP AROM cervical spine, shoulder ( avoiding abd) ,elbow flexion, ext, wrist and hand while following precautions,. Indep with upper body dressing with modifications as needed to follow elbow precautions Pt to verbalize elbow precautions Right elbow ext to 35 deg Pt to demo proper tech with scar massage Report on possible alternate hobbies to golf Right hand use with light daily activities with modications as needed to follow precautions [ End ] Right elbow ext to 30 deg Alf Goals: Demo elbow eccentric ex Right inside sales lead to 60 lb lbow ext to 30 deg Elbow flexion to >120 deg Supination to 60 deg Pronation to 60 deg Right inside sales lead to 60 lb Lift up to 10 lb max Report elbow precautions with daily activities [ End ] Plan of Care: See eval D/C Today: Treatment Plan: Therapeutic Exercise Therapeutic Activity Home Exercise Program Splinting Patient Education Edema Control ADL Training Soft Tissue Mobilization Treatment Plan Comments: Electronically Signed By: Susan Feldman OT CHT CLT Reviewed/agree with student documentation: N/A Therapist:
--- NOTE | 2021-02-07 11:18 | MHC.OT.OEV ---
[address] [phone] F: [phone] Occupational Therapy Evaluation Diagnosis: Right radial head arthroplasty and LCLR Date of Onset: 12/30/20 Date of Surgery: 01/29/21 Attending Provider: Prescribed Treatment: James Pendleton MD MD Follow Up Appointment: 02/10/21 History of Current Condition: Pt reports he tripped over something in the yard. Pt SYD, right side. Seen at the walk in clinic in [place] and referred to Dr Pendleton. 01/21/21 underwent elbow reduction , removal of bony fragments and LCL repair 01/29/21 RCL, LUCL repain due to instability Placed in a sugar tong . Xray on 02/03/21 xray shows a stable appearance ro right radial head prosthesis Pt fitted with a hinged elbow brace at 50-100 deg and instructed to avoid arm abduction, forearm rotation, no lifting... Significant Medical History: Childhood right shoulder dislocation Anxiety Precautions/Contraindications: Right elbow instability. 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 using left hand only. On medical leave Sleep: Reports no difficulty. Oxycodone for pain management at night only Driving: Unable Vision: Balance: Pain Assessment Pain Score: 3 Pain Scale Used: Numeric (0 - 10) Pain Location and Description: 0-3 right elbow with motin during day and oxycodone at night Ache Aggravating Factors: Pt avoiding use of right arm.. inc pain at end of day Alleviating Factors: Motin during day Oxycodone at night Skin and Soft Tissue Assessment Skin and Soft Tissue: Swelling Comments: Mild right hand and arm edema Nerve assessment Ulnar Nerve: WNL Median Nerve: Radial Nerve: Comments: Sensory Assessment Temperature: Light Touch: WNL Proprioception: Vibration: Comments: Edema Assessment Upper Extremity: Right Impaired Lower Extremity: Comments: Right WFL ..mild hand to upper arm Dexterity Assessment Dexterity: Right Impaired Comments: Has completely avoided using until today. Able to write Special Tests Comments: AROM(PROM) Strength Cervical Cervical Flexion: Cervical Extension: Cervical Lateral Flexion: Cervical Rotation: Comments: WFL Shoulder Flexion: WFL Extension: WFL Abduction: NA Internal Rotation: NA External Rotation: NA Comments: Elbow precautions Flexion: Extension: Abduction: Internal Rotation: External Rotation: Comments: NA Elbow Flexion: 95 Extension: 50 Pronation: NA Supination: NA Comments: Pt in hinged brace 50-100 deg in neutral rotation Flexion: Extension: Pronation: Supination: Comments: NA Wrist Flexion: Extension: Ulnar Deviation: Radial Deviation: Comments: WFL. Slight tremor and incoordination Flexion: Extension: Ulnar Deviation: Radial Deviation: Comments: NA Thumb Thumb CMC Flexion: Thumb MCP Flexion: Thumb IP Flexion: Radial Abduction: Palmar Abduction: Larsen (Kapandji 0-10): WNL Comments: Digits Index MCP: PIP: DIP: Long MCP: PIP: DIP: Ring MCP: PIP: DIP: Small MCP: PIP: DIP: Comments: WNL Gross Grasp: Left 80 lb Lateral Pinch: Two-Point Pinch: Three-Jaw Ponce: Comments: Patient Education Primary Language: Yoruba Director Women Required: Current Knowledge: Minimal, needs reinforcement Teaching Method: Demonstration Handouts Verbal Education Needs Identified on Evaluation: ADL's Disease Information Exercise How did patient/family demonstrate learning? Patient demonstrates Patient verbalizes Barriers to Learning: None Readiness for Learning: Accepting Who was educated? Patient Comments: Plan of Care Assessment: Pt is a 56 yo male 15 days R elbow open reduction and removal of bony fragments and LUCL repair and 1 wk s/p right elbow radial head arthroplasty , LUCL and RCL ligament repair due to an unstable right elbow radial head fracture and LCL avulsion Recent xrays shows a stable appearance of the radial head prosthesis. Pt in now in a hinged elbow splint in ~neutral rotation. He demonstrates AROM in confines of the hinge splint He has been completely avoiding use of his right hand due to fear of disrupting the repair. He will benefit from OT for protected ROM , strengthening and function STG Duration: 2 wks Short Term Goals: Demo HEP as instructed Indep with upper body dressing with modifications as needed Demo full shoulder ROM with avoiding abduction and forearm rotationDemo HEP AROM cervical spine, shoulder ( avoiding abd) ,elbow flexion, ext, wrist and hand while following precautions,. Indep with upper body dressing with modifications as needed to follow elbow precautions Pt to verbalize elbow precautions Right elbow ext to 35 deg Pt to demo proper tech with scar massage Report on possible alternate hobbies to golf Right hand use with light daily activities with modications as needed to follow precautions [ End ] Right elbow ext to 30 deg LTG Duration: 12 wks Detention Goals: Demo elbow eccentric ex Right market development executive to 60 lb lbow ext to 30 deg Elbow flexion to >120 deg Supination to 60 deg Pronation to 60 deg Right market development executive to 60 lb Lift up to 10 lb max Report elbow precautions with daily activities [ End ] Frequency and Duration: The patient will be seen 1x wk x 12 wks Treatment Plan: Therapeutic Exercise Therapeutic Activity Home Exercise Program Splinting Patient Education Edema Control ADL Training Soft Tissue Mobilization Electronically Signed By: Susan Feldman OT CHT CLT Reviewed/agree with student documentation: N/A Therapist: Please sign and return to therapist, Thank you for your referral.
--- NOTE | 2021-02-07 11:19 | MHC.OT.OEV ---
[address] [phone] F: [phone] Occupational Therapy Evaluation Diagnosis: Right radial head arthroplasty and LCLR Date of Onset: 12/30/20 Date of Surgery: 01/29/21 Attending Provider: Prescribed Treatment: James Pendleton MD MD Follow Up Appointment: 02/10/21 History of Current Condition: Pt reports he tripped over something in the yard. Pt SYD, right side. Seen at the walk in clinic in [place] and referred to Dr Pendleton. 01/21/21 underwent elbow reduction , removal of bony fragments and LCL repair 01/29/21 RCL, LUCL repain due to instability Placed in a sugar tong . Xray on 02/03/21 xray shows a stable appearance ro right radial head prosthesis Pt fitted with a hinged elbow brace at 50-100 deg and instructed to avoid arm abduction, forearm rotation, no lifting... Significant Medical History: Childhood right shoulder dislocation Anxiety Precautions/Contraindications: Right elbow instability. 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 using left hand only. On medical leave Sleep: Reports no difficulty. Oxycodone for pain management at night only Driving: Unable Vision: Balance: Pain Assessment Pain Score: 3 Pain Scale Used: Numeric (0 - 10) Pain Location and Description: 0-3 right elbow with motin during day and oxycodone at night Ache Aggravating Factors: Pt avoiding use of right arm.. inc pain at end of day Alleviating Factors: Motin during day Oxycodone at night Skin and Soft Tissue Assessment Skin and Soft Tissue: Swelling Comments: Mild right hand and arm edema Nerve assessment Ulnar Nerve: WNL Median Nerve: Radial Nerve: Comments: Sensory Assessment Temperature: Light Touch: WNL Proprioception: Vibration: Comments: Edema Assessment Upper Extremity: Right Impaired Lower Extremity: Comments: Right WFL ..mild hand to upper arm Dexterity Assessment Dexterity: Right Impaired Comments: Has completely avoided using until today. Able to write Special Tests Comments: AROM(PROM) Strength Cervical Cervical Flexion: Cervical Extension: Cervical Lateral Flexion: Cervical Rotation: Comments: WFL Shoulder Flexion: WFL Extension: WFL Abduction: NA Internal Rotation: NA External Rotation: NA Comments: Elbow precautions Flexion: Extension: Abduction: Internal Rotation: External Rotation: Comments: NA Elbow Flexion: 95 Extension: 50 Pronation: NA Supination: NA Comments: Pt in hinged brace 50-100 deg in neutral rotation Flexion: Extension: Pronation: Supination: Comments: NA Wrist Flexion: Extension: Ulnar Deviation: Radial Deviation: Comments: WFL. Slight tremor and incoordination Flexion: Extension: Ulnar Deviation: Radial Deviation: Comments: NA Thumb Thumb CMC Flexion: Thumb MCP Flexion: Thumb IP Flexion: Radial Abduction: Palmar Abduction: [place] (Kapandji 0-10): WNL Comments: Digits Index MCP: PIP: DIP: Long MCP: PIP: DIP: Ring MCP: PIP: DIP: Small MCP: PIP: DIP: Comments: WNL Gross Grasp: Left 80 lb Lateral Pinch: Two-Point Pinch: Three-Jaw Ponce: Comments: Patient Education Primary Language: Arabic Carding Doubler Required: Current Knowledge: Minimal, needs reinforcement Teaching Method: Demonstration Handouts Verbal Education Needs Identified on Evaluation: ADL's Disease Information Exercise How did patient/family demonstrate learning? Patient demonstrates Patient verbalizes Barriers to Learning: None Readiness for Learning: Accepting Who was educated? Patient Comments: Plan of Care Assessment: Pt is a 56 yo male 15 days R elbow open reduction and removal of bony fragments and LUCL repair and 1 wk s/p right elbow radial head arthroplasty , LUCL and RCL ligament repair due to an unstable right elbow radial head fracture and LCL avulsion Recent xrays shows a stable appearance of the radial head prosthesis. Pt in now in a hinged elbow splint in ~neutral rotation. He demonstrates AROM in confines of the hinge splint He has been completely avoiding use of his right hand due to fear of disrupting the repair. He will benefit from OT for protected ROM , strengthening and function STG Duration: 2 wks Short Term Goals: Demo HEP as instructed Indep with upper body dressing with modifications as needed Demo full shoulder ROM with avoiding abduction and forearm rotationDemo HEP AROM cervical spine, shoulder ( avoiding abd) ,elbow flexion, ext, wrist and hand while following precautions,. Indep with upper body dressing with modifications as needed to follow elbow precautions Pt to verbalize elbow precautions Right elbow ext to 35 deg Pt to demo proper tech with scar massage Report on possible alternate hobbies to golf Right hand use with light daily activities with modications as needed to follow precautions [ End ] Right elbow ext to 30 deg LTG Duration: 12 wks Alf Goals: Demo elbow eccentric ex Right furnace reliner to 60 lb lbow ext to 30 deg Elbow flexion to >120 deg Supination to 60 deg Pronation to 60 deg Right furnace reliner to 60 lb Lift up to 10 lb max Report elbow precautions with daily activities [ End ] Frequency and Duration: The patient will be seen 1x wk x 12 wks Treatment Plan: Therapeutic Exercise Therapeutic Activity Home Exercise Program Splinting Patient Education Edema Control ADL Training Soft Tissue Mobilization Electronically Signed By: Susan Feldman OT CHT CLT Reviewed/agree with student documentation: N/A Therapist: Please sign and return to therapist, Thank you for your referral.
--- NOTE | 2021-05-16 10:20 | MHC.OT.DC ---
[address] [phone] F: [phone] Occupational Therapy Discharge Note Provider: Les Rogers Diagnosis: Right radial head arthroplasty and LCLR Date of Surgery: 01/29/21 Date of Evaluation: 02/06/21 Date of Discharge: 05/16/21 Treatments to Date: 18 Cancellations to Date: 2 No Shows to Date: Discharge Status: Improved Function Independent with HEP Discharge Summary: Plateau in right elbow ROM. Pt reports wearing Dynasplint for elbow flexion at home. Pt has begun using a supination splint fabricated here with a volar gutter wrist splint with added black theraband loop and 5 lb freewt for dynamic stretch. He gets a 5 deg inc in supination not carried over visit to visit. All goal met except for supination at 50 deg max. Elbow flexion 120 deg, ext 30 deg Photograph Finisher 70 lb Function now able to put palm on face and back of head. 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
== END 2021-05-16 10:20 | disposition home or self-care (01) ==
LOC: HO.OT 09:30
PROVIDERS: PCP Hospitalist; Visit Provider Physician Assistant
DX: Z96.621 Presence of right artificial elbow joint (principal)
CPT/HCPCS: 97035; 97110; 97140; 97167; 97530; 97760

== ENCOUNTER 2021-05-19 08:09 | Outpatient (REF) | payer OTHER, SELFPAY ==
--- NOTE | ~2021-05-19 | XR_ITS ---
EXAMINATION: XR ELBOW, RIGHT CLINICAL INFORMATION: Pain in elbow. COMPARISON: None TECHNIQUE: AP, lateral, and oblique views of the right elbow. FINDINGS: There is a radial head prosthesis in satisfactory alignment. There are small loose bodies seen along the medial epicondyle. There is a small lucency seen along the lateral epicondyle questioning fracture with mild soft tissue swelling. The anterior fat pad sign is positive. There are small bone fragments seen anterior to the elbow joint. XR/XR elbow RT 2V IMPRESSION: Right radial head prosthesis. Suspect lateral epicondylar nondisplaced fracture. There is mild joint effusion with positive anterior fat pad sign. There are small loose bodies seen anterior to the elbow joint.
== END 2021-05-19 08:10 | disposition home or self-care (01) ==
LOC: HO.HOSX 08:09
PROVIDERS: Visit Provider Orthopaedic Surgery
DX: S53.001A Unspecified subluxation of right radial head, initial encounter (principal); S53.441A Ulnar collateral ligament sprain of right elbow, initial encounter
CPT/HCPCS: 73070

== ENCOUNTER 2021-08-18 06:47 | Outpatient (REF) | payer OTHER, SELFPAY ==
--- NOTE | ~2021-08-18 | XR_ITS ---
EXAMINATION: XR ELBOW, RIGHT CLINICAL INFORMATION: Right elbow pain. COMPARISON: 05/19/2021 right elbow radiographs. TECHNIQUE: AP, lateral, and oblique views of the right elbow. FINDINGS: The right radial head prosthesis is seen in place showing good anatomic alignment. Mild increased lucency surrounds the posterior osseous components. Additionally there is increased spacing between the radial head component and pilot station bone more pronounced medially measuring 0.12 cm (previously 0.05 cm). Mild olecranon degenerative joint changes are seen with marginal osteophyte formation. The distal humerus appears intact. There is a possible small joint effusion. The soft tissues are unremarkable. XR/XR elbow RT 2V IMPRESSION: Findings suggest mild loosening of the radial head prosthesis without acute fracture. Possible small joint effusion without significant change.
== END 2021-08-18 06:48 | disposition home or self-care (01) ==
LOC: HO.HOSX 06:47
PROVIDERS: Visit Provider Orthopaedic Surgery
DX: M25.521 Pain in right elbow (principal)
CPT/HCPCS: 73070

== ENCOUNTER 2022-08-20 07:23 | Outpatient (REF) | payer OTHER, SELFPAY | END 2022-08-20 07:24 | disposition home or self-care (01) | LOC: HO.HOSX 07:23 | PROVIDERS: Visit Provider Orthopaedic Surgery | DX: Z13.89 Encounter for screening for other disorder (principal) ==

== ENCOUNTER 2022-09-14 14:53 | Outpatient (REF) | payer OTHER, SELFPAY | END 2022-09-14 14:54 | disposition home or self-care (01) | LOC: HO.HOSX 14:53 | PROVIDERS: Visit Provider Orthopaedic Surgery | DX: Z13.89 Encounter for screening for other disorder (principal) ==

== ENCOUNTER 2022-10-15 08:02 | Outpatient (REF) | payer OTHER, SELFPAY ==
--- NOTE | ~2022-10-15 | XR_ITS ---
EXAMINATION: XR ELBOW, RIGHT CLINICAL INFORMATION: Pain COMPARISON: Elbow radiographs 08/18/2021 TECHNIQUE: AP, lateral, and oblique views of the right elbow. FINDINGS: Right radial head prosthesis in anatomic alignment with the previously seen suspected. Hardware lucency less conspicuous on today's exam. Multiple ossific fragments dorsal to the elbow may reflect loose bodies. Soft tissue swelling. Displacement of the anterior fat pad suggesting a an elbow effusion. No definite acute fracture or dislocation identified. Similar spurring of the proximal radius. XR/XR elbow RT 2V IMPRESSION: 1. Right radial head prosthesis in anatomic alignment with the previously seen suspected. Hardware lucency less conspicuous on today's exam. 2. Multiple ossific fragments dorsal to the elbow may reflect loose bodies. 3. Soft tissue swelling. 4. Displacement of the anterior fat pad suggesting a an elbow effusion. No definite acute fracture or dislocation identified.
== END 2022-10-15 08:03 | disposition home or self-care (01) ==
LOC: HO.HOSX 08:02
PROVIDERS: Visit Provider Orthopaedic Surgery
DX: S53.441A Ulnar collateral ligament sprain of right elbow, initial encounter (principal); S53.006A Unspecified dislocation of unspecified radial head, initial encounter
CPT/HCPCS: 73070

== ENCOUNTER 2022-10-15 10:23 | Outpatient (AMB) | payer OTHER, SELFPAY ==
--- NOTE | 2022-10-15 11:02 | MHC.OFFVIS ---
Intake Intake Visit Reasons: OV-Radial head arthroplasty 01/21/21 Intake Note: Raudel is a 57 year old male who presents today for a follow up appointment s/p Radial head arthroplasty 01/21/21. Patient reports that he is doing very well with no concerns. He has been able to golf with no pain. Allergies No Known Allergies Allergy (Verified 05/19/21 09:09) HPI OV-Radial head arthroplasty 01/21/21 HPI Details Raudel is a 57 year old man who presents ~20 months S/P right radial head arthroplasty. He says he is doing well and has no complaints at this time. [facility] Medical History HTN (hypertension) Surgical History History of right elbow replacement Social History Household Members: Spouse and Family Housing: House Do you presently have visiting nurse or other home services: No Patient Tobacco Use Status: Never used Tobacco service: No Current occupational status: employed Current occupation: [employer] employee Gender identity: Male Review of Systems Const All systems reviewed & are unremarkable except as noted in HPI and below Physical Exam Const General: no acute distress and alert Orientation/consciousness: patient oriented x3 Neuro General: patient oriented x3 Extrem Other: Right Upper Extremity: Full extension ~5 degree loss of terminal flexion ~20 degrees supination Psych Appearance: grossly normal Affect: normal affect Attitude: cooperative Results Reviewed Results Reviewed: I personally reviewed relevant radiographs. Located right elbow with intact radial head prosthesis. There are no hardware complications. Unchanged from prior Assessment & Plan Assessment & Plan (1) Radial head dislocation: Code(s): S53.006A - Unspecified dislocation of unspecified radial head, initial encounter Plan: Raudel is a 56 year old man who is S/P right radial head arthroplasty for instability and fracture with lateral ligamentous repair, DOS: 01/21/21. He has improved ROM and reduced pain, and is happy he has returned to golfing comfortably. He has no complaints at this time and is happy with the results of his surgery. He can follow up prn. (2) Tear of ulnar collateral ligament of elbow: Code(s): S53.449A - Ulnar collateral ligament sprain of unspecified elbow, initial encounter Plan Scribed for James Pendleton MD by Izaiah Friedman, medical record assistant, on 10/15/22 at 11:15 AM, EST. Orders: Orders XR elbow RT 2V 10/15/22 M25.529 - Pain in unspecified elbow Coding Level of Care Code Est Pt Level 3 (03283) Diagnoses Radial head dislocation S53.006A Tear of ulnar collateral ligament of elbow S53.449A
== END 2022-10-15 11:17 | disposition home or self-care (01) ==
PROVIDERS: PCP Hospitalist; Visit Provider Orthopaedic Surgery
DX: Z47.89 Encounter for other orthopedic aftercare (principal); Z96.621 Presence of right artificial elbow joint
CPT/HCPCS: 99213

== ENCOUNTER → 2023-08-03 15:45 | Outpatient (RCR) | payer OTHER, SELFPAY ==
--- NOTE | 2021-06-16 16:23 | MHC.OT.DC ---
[address] [phone] F: [phone] Occupational Therapy Discharge Note Provider: Diagnosis: R radial head arthroplasty and LCLR Date of Surgery: 01/29/21 Date of Evaluation: 02/06/21 Date of Discharge: Treatments to Date: 19 Cancellations to Date: No Shows to Date: Discharge Status: Improved Function Independent with HEP Discharge Summary: Pt is 19 wks s/p right radial head arthroplasty and LCLR He has been attending OT more recently 1x wk and utilizing dynamic splints for maximizing elbow ext and elbow flexion with LLPS and a fabricated supination splint for passive stretch up to 20 min Elbow ROM appears to have plateaued at 30 deg ext and ~120 deg flexion. Supination at ~45 -50 deg. Only a slight inc in motion after stretching.. He reports that he is indep with all areas with a few modifications due to ROM impairments and continues to avoid golf and heavy use with his right arm. His strength and ROM are within functional limits He reports he should invest more time in wearing his splints at home and plans to continue to use them He is looking for MD approval to return to playing golf Skilled OT is not needed at this time Electronically Signed By: Susan Feldman OT CHT CLT Reviewed/agree with student documentation: N/A Therapist: Please Sign and return to therapist, thank you for your referral.
== END | disposition home or self-care (01) ==
LOC: HO.OT 05-22 11:28
PROVIDERS: PCP Hospitalist; Visit Provider Physician Assistant
DX: S53.00 Unspecified subluxation and dislocation of radial head (principal); T84.84XD Pain due to internal orthopedic prosthetic devices, implants and grafts, subsequent encounter; Z96.621 Presence of right artificial elbow joint
CPT/HCPCS: 97110; 97140